=== PATIENT | female | born 1990 | race African-American/Black ===

== ENCOUNTER 2024-01-04 14:52 | Emergency (ER) | payer BC ==
[~2024-01-04] VITALS: Ht 165.1 cm; Wt 52.2 kg
[2024-01-04 14:55] VITALS: BP_SYST 99; PULSE 89; RESP 19; TEMP 97.4; O2SAT 99
[2024-01-04 16:11] LABS: BASOPHILS % (AUTO) 0.5 % (0.0-2.0); EOSINOPHILS # (AUTO) 0.3 K/uL (0.0-0.4); EOSINOPHILS % (AUTO) 4.4 % (0.0-4.0); HEMATOCRIT 40.8 % (36-48); HEMOGLOBIN 13.5 g/dL (12.0-16.0); LYMPHOCYTES # (AUTO) 2.6 K/uL (1.0-5.5); LYMPHOCYTES % (AUTO) 34.6 % (20.5-51.5); MEAN CORPUSCULAR HEMOGLOBIN 29 pg (27-31); MEAN CORPUSCULAR HGB CONC 33 % (32-36); MEAN CORPUSCULAR VOLUME 88 fL (79.0-98.0); MONOCYTES # (AUTO) 0.7 K/uL (0.0-1.0); MONOCYTES % (AUTO) 8.8 % (1.7-9.3); NEUTROPHILS # (AUTO) 3.9 K/uL (1.8-7.7); NEUTROPHILS % (AUTO) 51.7 % (40.0-70.0); PLATELET COUNT (AUTO) 315 K/uL (130-430); RED BLOOD CELL COUNT(AUTO) 4.63 MIL/uL (4.2-6.2); RED CELL DISTRIBUTION WIDTH 14.9 % (9.0-15.0); WHITE BLOOD COUNT (AUTO) 7.6 K/uL (4.8-10.8)
[2024-01-04 16:25] LABS: CALCIUM 8.8 mg/dL (8.4-11.0); CREATININE 1.01 mg/dL (0.55-1.30); POTASSIUM 3.8 mmol/L (3.5-5.1)
[2024-01-04 16:52] LABS: BILIRUBIN,URINE 1+ (NEGATIVE); BLOOD, URINE NEGATIVE (NEGATIVE); CLARITY/URINE OTHER (CLEAR); COLOR,URINE YELLOW (YELLOW); GLUCOSE,URINE NEGATIVE (NEGATIVE); KETONES,URINE NEGATIVE (NEGATIVE); LEUKOCYTE ESTERASE ,URINE NEGATIVE (NEGATIVE); NITRITE, URINE NEGATIVE (NEGATIVE); PROTEIN URINE NEGATIVE (NEGATIVE)
[2024-01-04] MEDS ORDERED: IBUP-1969 PO (17:12)
[2024-01-04] MEDS ORDERED: METR-154 PO (17:12)
[2024-01-04 17:42] VITALS: BP_SYST 99; PULSE 89; RESP 19; TEMP 97.4; O2SAT 99
== END 2024-01-04 17:20 | disposition home or self-care (01) ==
LOC: SED 14:52
DX: N76.0 Acute vaginitis (principal); B96.89 Other specified bacterial agents as the cause of diseases classified elsewhere; R10.2 Pelvic and perineal pain
CPT/HCPCS: 36415; 76856; 80048; 81001; 81003; 81025; 85025; 87210; 87491; 99284

== ENCOUNTER 2024-04-17 18:41 | Emergency (ER) | payer BC ==
[~2024-04-17] VITALS: Ht 165.1 cm; Wt 53.1 kg
[~2024-04-17 18:41] MED LIST: IBUP-1969 PO; METR-154 PO
[2024-04-17 18:52] VITALS: BP_SYST 118; PULSE 78; RESP 19; TEMP 97.9; O2SAT 98
[2024-04-17 20:09] LABS: BILIRUBIN,URINE NEGATIVE (NEGATIVE); BLOOD, URINE NEGATIVE (NEGATIVE); COLOR,URINE YELLOW (YELLOW); GLUCOSE,URINE NEGATIVE (NEGATIVE); KETONES,URINE TRACE (NEGATIVE); LEUKOCYTE ESTERASE ,URINE NEGATIVE (NEGATIVE); NITRITE, URINE NEGATIVE (NEGATIVE); PROTEIN URINE NEGATIVE (NEGATIVE)
[2024-04-17 20:10] LABS: CLARITY/URINE HAZY (CLEAR)
[2024-04-17] MEDS ORDERED: HYDR-3927 PO (20:55)
[2024-04-17] MEDS ORDERED: IBUP-1969 PO (20:55)
[2024-04-17] MEDS ORDERED: PANTOPRAZOLE SODIUM 40 MG TAB PO ONE (21:00)
[2024-04-17 21:25] VITALS: BP_SYST 113; PULSE 74; RESP 18; TEMP 98; O2SAT 98
== END 2024-04-17 21:03 | disposition home or self-care (01) ==
LOC: SED 18:41
DX: G89.29 Other chronic pain (principal); M54.50 Low back pain, unspecified; Z79.899 Other long term (current) drug therapy
CPT/HCPCS: 72100; 81001; 81003; 81025; 99284